=== PATIENT | female | born 1960 | race Two or more races ===

== ENCOUNTER 2017-02-15 14:31 | Emergency (ER) | payer MEDICAID, OTHER ==
[~2017-02-15] VITALS: Ht 162.6 cm; Wt 78.9 kg
[~2017-02-15 14:31] MED LIST: BENAZEPRIL HCL20 MG ORAL; GABAPENTIN300 MG ORAL; IBUPROFEN600 MG ORAL; ROBAXIN-750750 MG PO; TRAMADOL HCL50 MG ORAL
[2017-02-15 15:02] VITALS: BP 134/87
--- NOTE | 2017-02-15 15:04 | Emergency Room Report ---
History of Present Illness General Chief Complaint: Lower Back Pain or Injury Source: Patient Present Illness HPI 56 y/o female c/o sciatica flair up x 1 day. States she was working out at the gym yesterday and pulled her back. States pain radiates to right posterior knee. States this is a chronic reoccurring problem for her and usually takes tramadol during flair ups. Pain worse with movement and better with rest. Denies any lower extremity weakness, incontinence, foot drop, saddle anesthesia , numbness, or paralysis. Allergies: Coded Allergies: ACETAMINOPHEN (Verified Allergy, Mild, RASH, 11/16/13) CODEINE (Verified Allergy, Mild, RASH, 11/16/13) Patient History Past Medical History: see triage record Past Surgical History: none Pertinent Family History: none Immunizations: UTD Reviewed Nursing Documentation: PMH: Agreed, PSxH: Agreed Nursing Documentation-PMH Past Medical History: No History, Except For Hx Hypertension: Yes Hx Neurological Problems: Yes - Sciatica Review of Systems All Other Systems: negative except mentioned in HPI Physical Exam Vital Signs Date Time Temp Pulse Resp B/P Pulse Ox O2 Delivery O2 Flow Rate FiO2 02/15/17 14:41 99.1 94 16 134/87 99 Room Air Sp02 EP Interpretation: reviewed, normal General Appearance: no apparent distress, alert, GCS 15, non-toxic Head: normocephalic, atraumatic Eyes: bilateral eye PERRL, bilateral eye normal inspection ENT: normal ENT inspection Neck: normal inspection, no bony tend Respiratory: chest non-tender, lungs clear, normal breath sounds, speaking full sentences Cardiovascular #1: regular rate, rhythm, no edema Musculoskeletal: back normal, gait/station normal, normal range of motion, non- tender Neurologic: alert, oriented x3, responsive, motor strength/tone normal, sensory intact, speech normal Psychiatric: judgement/insight normal, memory normal, mood/affect normal, no suicidal/homicidal ideation Reflexes: 2+ knee (R), 2+ knee (L) Skin: normal color, no rash, warm/dry, well hydrated Medical Decision Making PA Attestation Dr. Patrick is my supervising physician with whom patient management has been discussed with. Diagnostic Impression: Primary Impression: Lumbago with sciatica, right side Additional Impression: acute exacerbation of chronic pain ER Course Pt. presents to the ED c/o back pain Ddx considered but are not limited to sciatica, piriformis muscle Vital signs: are WNL, pt. is afebrile H&PE are most consistent with [] ORDERS: none required at this time, the diagnosis is clinical ED INTERVENTIONS: none required at this time. DISCHARGE: At this time pt. is stable for d/c to home. Will provide printed patient care instructions, and any necessary prescriptions. Care plan and follow up instructions have been discussed with the patient prior to discharge. Last Vital Signs Date Time Temp Pulse Resp B/P Pulse Ox O2 Delivery O2 Flow Rate FiO2 02/15/17 15:22 78 16 130/80 98 Room Air 02/15/17 15:02 99.1 Status: unchanged Disposition: HOME, SELF-CARE Condition: Stable Scripts Tramadol Hcl* (ULTRAM*) 50 Mg Tablet 50 MG ORAL Q6H Y for For Pain, #30 TAB 0 Refills Prov: SABDINO LEIGHM P.A. 02/15/17 Ibuprofen* (MOTRIN*) 600 Mg Tablet 600 MG ORAL Q8H Y for For Pain, #30 TAB Prov: DINO CORTESM P.A. 02/15/17 Methocarbamol* (ROBAXIN-750*) 750 Mg Tablet 750 MG PO TID, #21 TAB 0 Refills Prov: DINO CORTESM P.A. 02/15/17 Patient Instructions: Low Back Sprain With Rehab-Sports[facility], Sciatica Additional Instructions: Advised patient to take medication as needed. Advised patient that muscle relaxers causes drowsiness and to not take it if they plan on leaving the house or operating heavy machinery. Patient education on Garfield method back exercises for radiculopathy and given hand out with stretches detailed. Advised patient to sleep with pillow behind leg if laying supine or between the knees if laying on their side. Advised patient to wear proper footwear with good insoles in addition to good ergonomics while at home and at work. Patient encouraged for weight loss through diet and exercise to help prevent recurrence of future back pain. Advised patient to go to the ER immediately if she experiences any new LE numbness, weakness, irretractible back pain, or if any paralysis, urinary, or bowel incontinence begins. ANALILIA CORTES Feb 15, 2017 15:04
[2017-02-15] MEDS ORDERED: ROBAXIN-750750 MG PO (15:07)
[2017-02-15] MEDS ORDERED: IBUPROFEN600 MG ORAL (15:07)
[2017-02-15] MEDS ORDERED: TRAMADOL HCL50 MG ORAL (15:07)
[2017-02-15 15:22] VITALS: BP 130/80
== END 2017-02-15 15:20 | disposition home or self-care (01) ==
LOC: EMR 14:50
DX: M54.41 Lumbago with sciatica, right side (principal); G89.29 Other chronic pain; Z88.6 Allergy status to analgesic agent; I10 Essential (primary) hypertension
CPT/HCPCS: 99284

== ENCOUNTER 2017-03-29 14:10 | Emergency (ER) | payer MEDICAID ==
[~2017-03-29] VITALS: Ht 162.6 cm; Wt 78.9 kg
[2017-03-29 14:30] VITALS: BP 128/77
[2017-03-29] MEDS ORDERED: Ketorolac 30mg Inj IM ONE (15:15)
[2017-03-29] MEDS ORDERED: traMADol 50mg tab ORAL ONE (15:15)
[2017-03-29] MEDS ORDERED: TRAMADOL HCL50 MG ORAL (15:19)
[2017-03-29 15:30] VITALS: BP 128/77
--- NOTE | 2017-03-29 19:07 | Emergency Room Report ---
History of Present Illness General Chief Complaint: Lower Back Pain or Injury Source: Medical Record Present Illness HPI The patient is a 56-year-old female with a history of sciatica presenting for right lower back pain. The patient states that she has a herniated disc of the lumbar spine. She states this usually takes tramadol and gabapentin for the pain. She has not had to take his medications recently but is now experiencing exacerbation. Is now described as a 9/10 sharp sensation to the right lower back which radiates down the right leg. Worse with movement. She denies any other symptoms including N, V, F, chills, abd pain, rash, calf pain Allergies: Coded Allergies: ACETAMINOPHEN (Verified Allergy, Mild, RASH, 11/16/13) CODEINE (Verified Allergy, Mild, RASH, 11/16/13) Patient History Past Medical History: see triage record Pertinent Family History: none Reviewed Nursing Documentation: PMH: Agreed, PSxH: Agreed Nursing Documentation-PMH Past Medical History: No History, Except For Hx Hypertension: Yes Hx Neurological Problems: Yes - Sciatica, Herniated L4-L5 Review of Systems All Other Systems: negative except mentioned in HPI Physical Exam Vital Signs Date Time Temp Pulse Resp B/P Pulse Ox O2 Delivery O2 Flow Rate FiO2 03/29/17 14:17 99.0 85 14 128/77 97 Room Air Sp02 EP Interpretation: reviewed, normal General Appearance: no apparent distress, alert, GCS 15, non-toxic Head: normocephalic, atraumatic Eyes: bilateral eye PERRL, bilateral eye normal inspection Musculoskeletal: normal inspection, normal range of motion, tender - TTP over the R paraspinal muscles and buttock Neurologic: alert, oriented x3, responsive, motor strength/tone normal, sensory intact, speech normal Psychiatric: judgement/insight normal, memory normal, mood/affect normal, no suicidal/homicidal ideation Skin: normal color, no rash, warm/dry, well hydrated Lymphatic: no adenopathy Medical Decision Making PA Attestation Dr. Patrick is my supervising physician. Patient management was discussed with my supervising physician Diagnostic Impression: Primary Impression: Sciatic leg pain ER Course The patient is a 56-year-old female with a history of sciatica presenting for right lower back pain Ddx considered include but not limited to lumbar strain, degenerative disease, sciatica, chronic pain, among others PE: vitals WNL. NAD There is tenderness to palpation along the right lumbar paraspinal muscles in the right buttock. No obvious deformity. Sensation is intact Normal gait no Step-offs The patient will be discharged home with a prescription for tramadol. She needs to followup with primary doctor. ER precautions are given Last Vital Signs Date Time Temp Pulse Resp B/P Pulse Ox O2 Delivery O2 Flow Rate FiO2 03/29/17 15:32 99.0 03/29/17 15:30 85 14 128/77 97 Room Air Status: improved Disposition: HOME, SELF-CARE Condition: Improved Scripts Tramadol Hcl* (ULTRAM*) 50 Mg Tablet 50 MG ORAL Q6H Y for For Pain, #10 TAB 0 Refills Prov: WILLIAM OLIVAREZ 03/29/17 Patient Instructions: Sciatica Additional Instructions: I discussed my findings with the patient. All questions and concerns have been answered. Treatment and medication compliance have been addressed. I advised the patient that they need to follow up with PMD in 3-5 days. Return to ED if symptoms worsen, new symptoms arise, or if needed for any reason. Patient verbalized understanding of discharge instructions. WILLIAM OLIVAREZ Mar 29, 2017 19:07
== END 2017-03-29 15:32 | disposition home or self-care (01) ==
LOC: EMR 14:25
DX: M54.31 Sciatica, right side (principal); I10 Essential (primary) hypertension; M51.26 Other intervertebral disc displacement, lumbar region; Z88.6 Allergy status to analgesic agent
CPT/HCPCS: 96372; 99283; J1885

== ENCOUNTER 2017-04-13 12:34 | Emergency (ER) | payer MEDICAID ==
[~2017-04-13] VITALS: Ht 162.6 cm; Wt 79.4 kg
[2017-04-13 12:48] VITALS: BP 152/92
--- NOTE | 2017-04-13 14:24 | Emergency Room Report ---
History of Present Illness General Chief Complaint: Back Pain-No Injury Source: Patient Present Illness HPI The patient is a 56 yo F presenting for chronic back pain. She states that she ran out of tramadol yesterday and will be seeing her PMD in one week for refill. Pain is a 9/10 dull ache to the R lower back and radiates down R leg. She denies any injury. No numbness/tingling. She denies any other symptoms. Allergies: Coded Allergies: ACETAMINOPHEN (Verified Allergy, Mild, RASH, 11/16/13) CODEINE (Verified Allergy, Mild, RASH, 11/16/13) Patient History Past Medical History: see triage record Pertinent Family History: none Last Menstrual Period: hystrectomy Reviewed Nursing Documentation: PMH: Agreed, PSxH: Agreed Nursing Documentation-PMH Past Medical History: No History, Except For Hx Hypertension: Yes Hx Neurological Problems: Yes - Sciatica, Herniated L4-L5 Review of Systems All Other Systems: negative except mentioned in HPI Physical Exam Vital Signs Date Time Temp Pulse Resp B/P Pulse Ox O2 Delivery O2 Flow Rate FiO2 04/13/17 12:48 98.8 14 152/92 99 04/13/17 12:48 90 Sp02 EP Interpretation: reviewed, normal General Appearance: no apparent distress, alert, GCS 15, non-toxic Head: normocephalic, atraumatic Eyes: bilateral eye PERRL, bilateral eye normal inspection ENT: hearing grossly normal, normal pharynx, no angioedema, normal voice Musculoskeletal: normal inspection, back normal, gait/station normal, normal range of motion, tender - R lumbar paraspinal muscles Neurologic: alert, oriented x3, responsive, motor strength/tone normal, sensory intact, speech normal Psychiatric: judgement/insight normal, memory normal, mood/affect normal, no suicidal/homicidal ideation Skin: normal color, no rash, warm/dry, well hydrated Medical Decision Making PA Attestation Dr. Lopez is my supervising physician. Patient management was discussed with my supervising physician Diagnostic Impression: Primary Impression: Chronic back pain Qualified Codes: M54.41 - Lumbago with sciatica, right side; G89.29 - Other chronic pain Additional Impression: Opiate dependence Qualified Codes: F11.29 - Opioid dependence with unspecified opioid-induced disorder ER Course The patient is a 56 yo F presenting for chronic back pain Ddx considered include but not limited to lumbar strain, degenerative disease, chronic pain, narcotic dependency. PE: NAD TTP over R lumbar paraspinal muscles. Otherwise unremarkable CURES report shows multiple prescriptions for tramadol by many different prescribers in recent past. I informed the patient that I will be able to provide this medication due to to multiple recent prescriptions. She understands. Safe pain medication prescribing form given. Last Vital Signs Date Time Temp Pulse Resp B/P Pulse Ox O2 Delivery O2 Flow Rate FiO2 04/13/17 12:48 98.8 90 14 152/92 99 Status: improved Disposition: HOME, SELF-CARE Condition: Stable Patient Instructions: Back Pain, Adult Additional Instructions: I discussed my findings with the patient. All questions and concerns have been answered. Treatment and medication compliance have been addressed. I advised the patient that they need to follow up with PMD in 3-5 days. Return to ED if symptoms worsen, new symptoms arise, or if needed for any reason. Patient verbalized understanding of discharge instructions. I provided the patient with a CURES report. We are unable to prescribe opioid pain medication. Safe pain medication prescribing sheet provided. WILLIAM OLIVAREZ Apr 13, 2017 14:24
== END 2017-04-13 14:52 | disposition home or self-care (01) ==
LOC: EMR 14:40
DX: M54.41 Lumbago with sciatica, right side (principal); G89.29 Other chronic pain; F11.29 Opioid dependence with unspecified opioid-induced disorder; I10 Essential (primary) hypertension; Z88.6 Allergy status to analgesic agent; Z90.710 Acquired absence of both cervix and uterus; M51.26 Other intervertebral disc displacement, lumbar region
CPT/HCPCS: 99282

== ENCOUNTER 2017-07-08 14:05 | Emergency (ER) | payer MEDICAID, OTHER ==
[~2017-07-08] VITALS: Ht 162.6 cm; Wt 86.2 kg
[2017-07-08] MEDS ORDERED: SOMA350 MG PO (14:13)
--- NOTE | 2017-07-08 14:37 | Emergency Room Report ---
History of Present Illness General Chief Complaint: Pain Source: Patient Present Illness HPI 56 YO Female presents to the ED c/o 03/23 in severity Right -sided low back pain that shoots down the leg x 2 days, hx of right sided sciatica, has MRI scheduled, and appt. with PCP for pain management referral on the second of next month. last exacerbation was 6 months ago. She denies fevers, chills, night sweats, significant changes in weight, hx of cancer, recent trauma or fall. Denies abdominal pain, dysuria, hematuria, frequency, headache, neck pain or stiffness. Denies numbness tingling or loss of sensation or gross motor movements of the extremities, incontinence of bowel or bladder. Denies CP, Palpitations, LOC, AMS, dizziness, Changes in Vision, Sensation, paresthesias, or a sudden severe headache. Allergies: Coded Allergies: ACETAMINOPHEN (Verified Allergy, Mild, RASH, 11/16/13) CODEINE (Verified Allergy, Mild, RASH, 11/16/13) Patient History Past Medical History: see triage record Past Surgical History: none Pertinent Family History: none Last Menstrual Period: Post Now: No Reviewed Nursing Documentation: PMH: Agreed, PSxH: Agreed Nursing Documentation-PMH Hx Hypertension: Yes Hx Neurological Problems: Yes - Sciatica, Herniated L4-L5 Review of Systems All Other Systems: negative except mentioned in HPI Physical Exam Vital Signs Date Time Temp Pulse Resp B/P (MAP) Pulse Ox O2 Delivery O2 Flow Rate FiO2 07/08/17 14:08 99.3 102 19 134/75 96 Room Air Sp02 EP Interpretation: reviewed, normal General Appearance: no apparent distress, alert, GCS 15, non-toxic Head: normocephalic, atraumatic Eyes: bilateral eye normal inspection, bilateral eye PERRL ENT: hearing grossly normal, normal voice Neck: full range of motion, supple/symm/no masses Respiratory: chest non-tender, lungs clear, normal breath sounds, no wheezing, speaking full sentences Cardiovascular #1: regular rate, rhythm, no edema, normal capillary refill, tachycardia - 102 BPM Cardiovascular #2: 2+ carotid (R), 2+ carotid (L), 2+ radial (R), 2+ radial (L) , 2+ dorsalis pedis (R), 2+ dorsalis pedis (L) Gastrointestinal: non tender, soft, no guarding, no rebound Rectal: deferred Genitourinary: normal inspection, no CVA tenderness Musculoskeletal: back normal, gait/station normal, normal range of motion - with intermittent exacerbation of pain, tender - right upper glute ttp, no spinal ttp, no obvious deformity. pt does not tolerate lying flat for straight leg raise exam. Neurologic: alert, oriented x3, responsive, motor strength/tone normal, sensory intact, speech normal Psychiatric: judgement/insight normal, memory normal, mood/affect normal Skin: normal color, no rash, warm/dry, well hydrated Medical Decision Making PA Attestation Dr. Pretty is my supervising Physician whom patient management has been discussed with. Diagnostic Impression: Primary Impression: Sciatic leg pain ER Course 56 YO Female presents to the ED c/o 03/23 in severity Right -sided low back pain that shoots down the leg x 2 days, hx of right sided sciatica, has MRI scheduled, and appt. with PCP for pain management referral on the second of next month. last exacerbation was 6 months ago. She denies fevers, chills, night sweats, significant changes in weight, hx of cancer, recent trauma or fall. Denies abdominal pain, dysuria, hematuria, frequency, headache, neck pain or stiffness. Denies numbness tingling or loss of sensation or gross motor movements of the extremities, incontinence of bowel or bladder. Denies CP, Palpitations, LOC, AMS, dizziness, Changes in Vision, Sensation, paresthesias, or a sudden severe headache. Ddx considered but are not limited to Fracture, dislocation, contusion, epidural abscess, Sprain/Strain/Spasm Vital signs: are WNL, pt. is afebrile H&PE are most consistent with sciatica Pt. unable to tolerate straight leg raise. ORDERS: X-ray not required at this time, no spinous process tenderness ED INTERVENTIONS: IM Toradol 20mg. -Soma PO DISCHARGE: At this time pt. is stable for d/c to home. Will provide printed patient care instructions, and any necessary prescriptions. Care plan and follow up instructions have been discussed with the patient prior to discharge. Last Vital Signs Date Time Temp Pulse Resp B/P (MAP) Pulse Ox O2 Delivery O2 Flow Rate FiO2 07/08/17 14:08 99.3 102 19 134/75 96 Room Air Disposition: HOME, SELF-CARE Condition: Stable Scripts Ibuprofen* (MOTRIN*) 600 Mg Tablet 600 MG ORAL THREE TIMES A DAY, #30 TAB 0 Refills Prov: Talya Hogan 07/08/17 Methocarbamol* (ROBAXIN-750*) 750 Mg Tablet 750 MG PO TID for 7 Days, #21 TAB 0 Refills Prov: Talya Hogan 07/08/17 Patient Instructions: Sciatica Additional Instructions: Take medications as directed. Follow up with a Primary Care Provider in 3-5 days, even if your symptoms have resolved. --Please review list of primary care clinics, if you do not already have a primary care provider Return sooner to ED if new symptoms occur, or current symptoms become worse. Do not drink alcohol, drive, or operate heavy machinery while taking Muscle Relaxer: Robaxin as this may cause drowsiness. - Please note that this Emergency Department Report was dictated using [employer] service lead technology software, occasionally this can lead to erroneous entry secondary to interpretation by the dictation equipment. Talya Hogan Jul 08, 2017 14:37
[2017-07-08] MEDS ORDERED: IBUPROFEN600 MG ORAL (14:42)
[2017-07-08] MEDS ORDERED: ROBAXIN-750750 MG PO (14:42)
[2017-07-08] MEDS ORDERED: Ketorolac 60mg Inj IM ONE (14:45)
[2017-07-08 15:00] VITALS: BP 125/86
== END 2017-07-08 15:00 | disposition home or self-care (01) ==
LOC: EMR 14:40
DX: M54.31 Sciatica, right side (principal); M54.5 Low back pain; M51.26 Other intervertebral disc displacement, lumbar region; Z88.6 Allergy status to analgesic agent; Z88.5 Allergy status to narcotic agent; I10 Essential (primary) hypertension
CPT/HCPCS: 96372; 99284

== ENCOUNTER 2017-08-18 12:04 | Emergency (ER) | payer OTHER ==
[~2017-08-18] VITALS: Ht 162.6 cm; Wt 81.6 kg
[~2017-08-18 12:04] MED LIST changes: +SOMA350 MG PO
[2017-08-18 12:20] VITALS: BP 149/93
[2017-08-18] MEDS ORDERED: traMADol 50mg tab ORAL ONE (12:30)
[2017-08-18 13:00] LABS: KETONES,URINE NEGATIVE (NEGATIVE); LEUKOCYTE ESTERASE ,URINE NEGATIVE (NEGATIVE); NITRITE,URINE NEGATIVE (NEGATIVE); PH,URINE 7 (4.5-8.0); PROTEIN,URINE NEGATIVE (NEGATIVE); UROBILINOGEN,URINE NORMAL MG/DL (0.0-1.0)
[2017-08-18 13:01] LABS: APPEARANCE,URINE CLEAR; SQUAMOUS EPITHELIAL CELL,UR OCCASIONAL /LPF (NONE/OCC); WBC,URINE 0-2 /HPF (0 - 2)
[2017-08-18 13:10] VITALS: BP 149/93
[2017-08-18] MEDS ORDERED: TRAMADOL HCL50 MG ORAL (13:13)
--- NOTE | 2017-08-18 19:23 | Emergency Room Report ---
History of Present Illness General Chief Complaint: Lower Back Pain or Injury Source: Patient Present Illness [facility] The patient is a 56-year-old female presenting for back pain. She has a history of chronic back pain with sciatica and states that she is being treated with chronic pain management. She takes tramadol 50 mg and has run out today. She states that she needs a refill for 3 days. Pain is a 10 out of 10 dull ache from the right lower back down the back of her right leg. She states that this is typical for her sciatica. Pain is worse with movement. She denies any other symptoms including nausea, vomiting, fever, chills, incontinence, abdominal pain Allergies: Coded Allergies: ACETAMINOPHEN (Verified Allergy, Mild, RASH, 11/16/13) CODEINE (Verified Allergy, Mild, RASH, 11/16/13) Patient History Past Medical History: see triage record Pertinent Family History: none Last Menstrual Period: na Reviewed Nursing Documentation: PMH: Agreed, PSxH: Agreed Nursing Documentation-PMH Past Medical History: No History, Except For Hx Hypertension: Yes Hx Neurological Problems: Yes - Sciatica, Herniated L4-L5 Review of Systems All Other Systems: negative except mentioned in HPI Physical Exam Vital Signs Date Time Temp Pulse Resp B/P (MAP) Pulse Ox O2 Delivery O2 Flow Rate FiO2 08/18/17 12:16 98.1 87 18 149/93 98 Room Air Sp02 EP Interpretation: reviewed, normal General Appearance: no apparent distress, alert, GCS 15, non-toxic Head: normocephalic, atraumatic Eyes: bilateral eye normal inspection, bilateral eye PERRL ENT: hearing grossly normal, normal pharynx, no angioedema, normal voice Gastrointestinal: normal bowel sounds, non tender, soft, non-distended, no guarding, no rebound Rectal: deferred Genitourinary: normal inspection, no CVA tenderness Musculoskeletal: back normal, normal range of motion, other - antalgic gait, tender - R lumbar paraspinal muscles Neurologic: alert, oriented x3, responsive, motor strength/tone normal, sensory intact, speech normal Psychiatric: judgement/insight normal, memory normal, mood/affect normal, no suicidal/homicidal ideation Skin: normal color, no rash, warm/dry, well hydrated Medical Decision Making PA Attestation Dr. Chambers is my supervising physician. Patient management was discussed with my supervising physician Diagnostic Impression: Primary Impression: Sciatic leg pain ER Course The patient is a 56-year-old female presenting for back pain Ddx considered include but not limited to lumbar strain, degenerative disease, epidural abscess, cauda equina syndrome, chronic pain, narcotic dependency. PE: afebrile. NAD Abdomen soft and nontender. No CVA tenderness There is tenderness to palpation over the right lumbar paraspinal muscles. No midline tenderness. The patient walks with antalgic gait with a cane. The patient is given 1 tramadol with Motrin here and will be discharged home with a limited prescription for tramadol. Cures report shows no recent prescription Laboratory Tests Test 08/18/17 12:30 Urine Color Pale yellow Urine Appearance Clear Urine pH 7 (4.5-8.0) Urine Specific [place] 1.010 (1.005-1.035) Urine Protein Negative (NEGATIVE) Urine Glucose (UA) Negative (NEGATIVE) Urine Ketones Negative (NEGATIVE) Urine Occult Blood 1+ (NEGATIVE) H Urine Nitrite Negative (NEGATIVE) Urine Bilirubin Negative (NEGATIVE) Urine Urobilinogen Normal MG/DL (0.0-1.0) Urine Leukocyte Esterase Negative (NEGATIVE) Urine RBC 2-4 /HPF (0 - 2) H Urine WBC 0-2 /HPF (0 - 2) Urine Squamous Epithelial Cells Occasional /LPF Urine Bacteria None /HPF (NONE) Lab Results Impression unremarkable Last Vital Signs Date Time Temp Pulse Resp B/P (MAP) Pulse Ox O2 Delivery O2 Flow Rate FiO2 08/18/17 13:17 98.0 08/18/17 13:10 84 18 149/93 98 Room Air Status: improved Disposition: HOME, SELF-CARE Condition: Improved Scripts Tramadol Hcl* (ULTRAM*) 50 Mg Tablet 50 MG ORAL Q6H Y for For Pain, #10 TAB 0 Refills Prov: WILLIAM OLIVAREZ 08/18/17 Referrals: [employer] [facility],REFERRIN (PCP) Patient Instructions: Back Pain, Adult Additional Instructions: I discussed my findings with the patient. All questions and concerns have been answered. Treatment and medication compliance have been addressed. I advised the patient that they need to follow up with PMD in 3-5 days. Return to ED if symptoms worsen, new symptoms arise, or if needed for any reason. Patient verbalized understanding of discharge instructions. The patient will need to followup with pain management for further treatment WLILIAM OLIVAREZ Aug 18, 2017 19:23
== END 2017-08-18 13:20 | disposition home or self-care (01) ==
LOC: EMR 13:10
DX: M54.40 Lumbago with sciatica, unspecified side (principal); I10 Essential (primary) hypertension; Z88.6 Allergy status to analgesic agent
CPT/HCPCS: 81003; 99283

== ENCOUNTER 2017-09-11 11:35 | Emergency (ER) | payer OTHER ==
[~2017-09-11] VITALS: Ht 162.6 cm; Wt 81.6 kg
[2017-09-11 11:47] VITALS: BP 142/91
--- NOTE | 2017-09-11 12:30 | Emergency Room Report ---
History of Present Illness General Chief Complaint: Medication Refill Present Illness HPI 56-year-old female presents to the emergency department complaining of 8/10 in severity right-sided low back pain with radiation into the posterior right thigh x2 days. Patient reports history of sciatica for which she intermittently needs to take tramadol for. Patient states that she is not regularly prescribed, not because she does not need it on a regular basis only. Acute flare-ups. Patient reports that she was helping to care for her mother and after lifting her had exacerbation of her symptoms. She denies trauma or fall. Denies fevers, chills, recent spinal procedures, night sweats or history of cancer. Denies frequency, urgency, dysuria or hematuria denies abdominal pain . Denies numbness tingling or loss of sensation or gross motor movements of the extremities, incontinence of bowel or bladder. Denies CP, Palpitations, LOC, AMS, dizziness, Changes in Vision, Sensation, paresthesias, or a sudden severe headache. Allergies: Coded Allergies: ACETAMINOPHEN (Verified Allergy, Mild, RASH, 11/16/13) CODEINE (Verified Allergy, Mild, RASH, 11/16/13) Patient History Past Medical History: see triage record Past Surgical History: none Pertinent Family History: none Reviewed Nursing Documentation: PMH: Agreed, PSxH: Agreed Nursing Documentation-PMH Hx Hypertension: Yes Hx Neurological Problems: Yes - Sciatica, Herniated L4-L5 Review of Systems All Other Systems: negative except mentioned in HPI Physical Exam Vital Signs Date Time Temp Pulse Resp B/P (MAP) Pulse Ox O2 Delivery O2 Flow Rate FiO2 09/11/17 11:37 98.1 99 20 142/91 99 Room Air Sp02 EP Interpretation: reviewed, normal General Appearance: no apparent distress, alert, GCS 15, non-toxic Head: normocephalic, atraumatic Eyes: bilateral eye normal inspection, bilateral eye PERRL ENT: hearing grossly normal, normal voice Neck: full range of motion Respiratory: lungs clear, normal breath sounds, speaking full sentences Cardiovascular #1: regular rate, rhythm Gastrointestinal: non tender, soft Genitourinary: no CVA tenderness Musculoskeletal: back normal, gait/station normal, normal range of motion, tender - right lumbar paraspinal ttp, no midline ttp, pt. is ambulatory FROM observed. Neurologic: alert, oriented x3, responsive, motor strength/tone normal, sensory intact, normal gait, speech normal, grossly normal Skin: normal color, no rash, warm/dry, well hydrated Medical Decision Making PA Attestation Dr. Chambers is my supervising Physician whom patient management has been discussed with. Diagnostic Impression: Primary Impression: Encounter for medication refill Additional Impression: Chronic back pain Qualified Codes: M54.41 - Lumbago with sciatica, right side; G89.29 - Other chronic pain ER Course 56-year-old female presents to the emergency department complaining of 8/10 in severity right-sided low back pain with radiation into the posterior right thigh x2 days. Patient reports history of sciatica for which she intermittently needs to take tramadol for. Patient states that she is not regularly prescribed, not because she does not need it on a regular basis only. Acute flare-ups. Patient reports that she was helping to care for her mother and after lifting her had exacerbation of her symptoms. She denies trauma or fall. Denies fevers, chills, recent spinal procedures, night sweats or history of cancer. Denies frequency, urgency, dysuria or hematuria denies abdominal pain . Denies numbness tingling or loss of sensation or gross motor movements of the extremities, incontinence of bowel or bladder. Denies CP, Palpitations, LOC, AMS, dizziness, Changes in Vision, Sensation, paresthesias, or a sudden severe headache. Ddx considered but are not limited to: drug seeking, OD, sciatica exacerbation Vital signs: are WNL, pt. is afebrile H&PE are most consistent with need for medication refill. ORDERS: none required at this time, the diagnosis is clinical ED INTERVENTIONS: None required at this time. -Discussed with patient that I will prescribe her Lidoderm patches for conservative treatment and very small quantity of medication however it is not standard to refill controlled substances or pain medications at the emergency department and further medication management needs to be done by her primary care physician. DISCHARGE: At this time pt. is stable for d/c to home. Will provide printed patient care instructions, and any necessary prescriptions. Care plan and follow up instructions have been discussed with the patient prior to discharge. Last Vital Signs Date Time Temp Pulse Resp B/P (MAP) Pulse Ox O2 Delivery O2 Flow Rate FiO2 09/11/17 11:37 98.1 99 20 142/91 99 Room Air Disposition: HOME, SELF-CARE Condition: Stable Scripts Lidocaine (Lidoderm) 1 Each Adh..patch 1 PATCH TOPIC DAILY, #25 PATCH 0 Refills Patch(es) may remain in place for up to 12 hours in any 24-hour period. Prov: Talya Hogan 09/11/17 Tramadol Hcl* (ULTRAM*) 50 Mg Tablet 50 MG ORAL Q8HR Y for For Pain, #10 TAB 0 Refills Prov: Talya Hogan 09/11/17 Patient Instructions: Medicine Refill at the Emergency Department Additional Instructions: Take medications as directed. Follow up with a Primary Care Provider in 3-5 days, even if your symptoms have resolved. --Please review list of primary care clinics, if you do not already have a primary care provider Return sooner to ED if new symptoms occur, or current symptoms become worse. Do not drink alcohol, drive, or operate heavy machinery while taking Tramadol as this may cause drowsiness. - Please note that this Emergency Department Report was dictated using [employer] machine operator technology software, occasionally this can lead to erroneous entry secondary to interpretation by the dictation equipment. Talya Hogan Sep 11, 2017 12:30
[2017-09-11] MEDS ORDERED: LIDODERM700 M1 TOPIC (12:32)
[2017-09-11] MEDS ORDERED: TRAMADOL HCL50 MG ORAL (12:32)
[2017-09-11 12:50] VITALS: BP 142/91
[2017-11-03] MEDS ORDERED: TRAMADOL HCL50 MG ORAL (12:47)
[2017-11-03] MEDS ORDERED: GABAPENTIN300 MG ORAL (12:47)
== END 2017-09-11 12:50 | disposition home or self-care (01) ==
LOC: EMR 12:40
DX: Z76.0 Encounter for issue of repeat prescription (principal); Z88.6 Allergy status to analgesic agent; Z88.0 Allergy status to penicillin; G89.29 Other chronic pain; M54.5 Low back pain; I10 Essential (primary) hypertension; M54.30 Sciatica, unspecified side
CPT/HCPCS: 99284

== ENCOUNTER 2017-10-02 15:58 | Emergency (ER) | payer OTHER ==
[~2017-10-02] VITALS: Ht 162.6 cm; Wt 82.1 kg
[~2017-10-02 15:58] MED LIST changes: +LIDODERM700 M1 TOPIC
[2017-10-02 16:11] VITALS: BP 135/106
[2017-10-02] MEDS ORDERED: TRAMADOL HCL50 MG ORAL (17:10)
[2017-10-02 17:15] VITALS: BP 135/106
[2017-10-02] MEDS ORDERED: traMADol 50mg tab ORAL ONE (17:15)
--- NOTE | 2017-10-02 17:55 | Emergency Room Report ---
History of Present Illness General Chief Complaint: Back Pain-No Injury Source: Patient Present Illness HPI The patient is a 57-year-old female with a history of chronic back pain and sciatica presenting for back pain. She states that pain is a 9/10 dull ache and radiates down the right leg. she states that this feels typical for her sciatica. She takes tramadol for her pain but states that she ran out today. She is to see her doctor within the next few days. She denies any recent injury or other symptoms including numbness, tingling, incontinence, abdominal pain, fever, chills Allergies: Coded Allergies: CODEINE (Verified Allergy, Mild, RASH, 11/16/13) Patient History Past Medical History: see triage record Pertinent Family History: none Reviewed Nursing Documentation: PMH: Agreed, PSxH: Agreed Nursing Documentation-PMH Past Medical History: No History, Except For Hx Hypertension: Yes Hx Neurological Problems: Yes - Sciatica, Herniated L4-L5 Review of Systems All Other Systems: negative except mentioned in HPI Physical Exam Vital Signs Date Time Temp Pulse Resp B/P (MAP) Pulse Ox O2 Delivery O2 Flow Rate FiO2 10/02/17 16:11 99.3 90 18 135/106 99 Room Air Sp02 EP Interpretation: reviewed, normal General Appearance: no apparent distress, alert, GCS 15, non-toxic Head: normocephalic, atraumatic Eyes: bilateral eye normal inspection, bilateral eye PERRL ENT: hearing grossly normal, normal pharynx, no angioedema, normal voice Respiratory: chest non-tender, lungs clear, normal breath sounds, speaking full sentences Cardiovascular #1: regular rate, rhythm, no edema Musculoskeletal: back normal, gait/station normal, normal range of motion, tender - R lumbar paraspinal muscles Neurologic: alert, oriented x3, responsive, motor strength/tone normal, sensory intact, speech normal Psychiatric: judgement/insight normal, memory normal, mood/affect normal, no suicidal/homicidal ideation Skin: normal color, no rash, warm/dry, well hydrated Medical Decision Making PA Attestation Dr. Duckworth is my supervising physician. Patient management was discussed with my supervising physician Diagnostic Impression: Primary Impression: Chronic back pain Qualified Codes: M54.5 - Low back pain; G89.29 - Other chronic pain ER Course The patient is a 57-year-old female with a history of chronic back pain and sciatica presenting for back pain. Ddx considered include but not limited to lumbar strain, degenerative disease, epidural abscess, cauda equina, chronic pain, narcotic dependency. Physical exam: Afebrile. No apparent distress Is tenderness to palpation over the right lumbar paraspinal muscles. Full active range of motion is intact. Normal gait Cures report shows last prescription was due to run out today. The patient is given one dose of pain medication in the emergency Department in a very limited prescription. She needs to have pain management prescribe these medications for chronic treatment. ER precautions are given Last Vital Signs Date Time Temp Pulse Resp B/P (MAP) Pulse Ox O2 Delivery O2 Flow Rate FiO2 10/02/17 17:15 99.3 84 18 135/106 99 Room Air Status: improved Disposition: HOME, SELF-CARE Condition: Improved Scripts Tramadol Hcl* (ULTRAM*) 50 Mg Tablet 50 MG ORAL Q6H Y for For Pain, #5 TAB 0 Refills Prov: WILLIAM OLIVAREZ 10/02/17 Referrals: [facility],REFERR[facility] (PCP) Patient Instructions: Back Pain, Adult Additional Instructions: I discussed my findings with the patient. All questions and concerns have been answered. Treatment and medication compliance have been addressed. Return to ED if symptoms worsen, new symptoms arise, or if needed for any reason. Patient verbalized understanding of discharge instructions. The patient was told that she needs to followup with pain management for further therapy. Emergency department is an improper place for chronic pain management WILLIAM OLIVAREZ Oct 02, 2017 17:55
[2017-11-03] MEDS ORDERED: TRAMADOL HCL50 MG ORAL (12:47)
[2017-11-03] MEDS ORDERED: GABAPENTIN300 MG ORAL (12:47)
== END 2017-10-02 17:15 | disposition home or self-care (01) ==
LOC: EMR 17:00
DX: G89.29 Other chronic pain (principal); M51.16 Intervertebral disc disorders with radiculopathy, lumbar region; I10 Essential (primary) hypertension; Z88.6 Allergy status to analgesic agent
CPT/HCPCS: 99283

== ENCOUNTER → 2017-11-03 | Emergency (ER) | payer MEDICAID, OTHER ==
[~2017-11-03] VITALS: Ht 162.6 cm; Wt 83.5 kg
--- NOTE | 2017-11-03 12:47 | Emergency Room Report ---
History of Present Illness General Chief Complaint: Pain Source: Patient Present Illness HPI 57 yo female patient presents to ER complaining of chronic back and sciatica pain. Patient reports currently being seen by pain management for treatment of symptoms. Patient reports current physician Dr. Soares "" and she had to get a new physician; reports appointment with new physician at pain management is next Thursday. Patient requesting pain medication until next appointment. Patient reports taking Tramadol and Gabapentin. Patient was previously seen in ER and provided with pain medication. Patient denies fever, chest pain, SOB, abdominal pain, bowel or bladder incontinence, rash. appointment with new doctor next Thursday. Allergies: Coded Allergies: CODEINE (Verified Allergy, Mild, RASH, 11/16/13) Patient History Past Medical History: see triage record Last Menstrual Period: Post Reviewed Nursing Documentation: PMH: Agreed, PSxH: Agreed Nursing Documentation-PMH Hx Hypertension: Yes Hx Neurological Problems: Yes - Sciatica, Herniated L4-L5 Review of Systems All Other Systems: negative except mentioned in HPI Physical Exam Vital Signs Date Time Temp Pulse Resp B/P (MAP) Pulse Ox O2 Delivery O2 Flow Rate FiO2 11/03/17 12:17 99.4 107 16 142/87 96 Room Air 99.3 Sp02 EP Interpretation: reviewed, normal General Appearance: well appearing, no apparent distress, alert, GCS 15, non- toxic Head: normocephalic, atraumatic Eyes: bilateral eye normal inspection, bilateral eye PERRL ENT: hearing grossly normal, normal pharynx, normal voice, uvula midline, moist mucus membranes Neck: full range of motion Respiratory: normal inspection, lungs clear, normal breath sounds, no rhonchi, no accessory muscle use, no wheezing, speaking full sentences Cardiovascular #1: regular rate, rhythm Gastrointestinal: normal bowel sounds, non tender, soft, no mass, no organomegaly, non-distended, no guarding, no rebound Musculoskeletal: back normal, digits/nails normal, gait/station normal, normal range of motion, non-tender, other - pain with right leg extension, positive flip test Neurologic: alert, oriented x3, responsive, motor strength/tone normal, normal gait Psychiatric: mood/affect normal Skin: no rash Medical Decision Making PA Attestation Dr. Pretty is my supervising Physician whom patient management has been discussed with. Diagnostic Impression: Primary Impression: Chronic back pain Additional Impression: Sciatic leg pain ER Course Pt. presents to the ED c/o back pain. Ddx considered but are not limited to sprain, strain, contusion, sciatica. Vital signs: pt. is afebrile; informed patient of elevated pulse; states she is normally elevated; reports hx of HTN. Checked CURES report; patient received month supply of Tramadol on 10/12/2017. Discussed with patient. Informed patient that ER will not continue to provide her with pain medication. Informed patient to take medication as prescribed; do not increase dosage without permission from pain management physician. Pain medication received from pain management should last entire month. Patient reports understanding and agreement to treatment plan. DISCHARGE: -Rx provided for Tramadol for pain symptoms. -Rx provided for Gabapentin for sciatica. Provided patient with one week supply of medication. Patient will need to followup with pain management. At this time pt. is stable for d/c to home. Patient is resting comfortably, in no acute distress, nontoxic appearing. Will provide printed patient care instructions, and any necessary prescriptions. Patient instructed to follow with primary care provider in 3 - 5 days to discuss treatment plan and further referral as needed Patient instructed to follow up with pain management for further pain medication and treatment. Care plan and follow up instructions have been discussed with the patient prior to discharge. Take medications as directed. Patient questions asked and answered. ER precautions given, patient instructed to return to ER immediately for any new or worsening of symptoms. Last Vital Signs Date Time Temp Pulse Resp B/P (MAP) Pulse Ox O2 Delivery O2 Flow Rate FiO2 11/03/17 12:17 99.4 107 16 142/87 96 Room Air 99.3 Disposition: HOME, SELF-CARE Condition: Stable Scripts Gabapentin* (GABAPENTIN*) 300 Mg Capsule 300 MG ORAL BEDTIME for 7 Days, #7 CAP Prov: Haresh Brown P.A. 11/03/17 Tramadol Hcl* (ULTRAM*) 50 Mg Tablet 50 MG ORAL DAILY Y for For Pain, #7 TAB 0 Refills Prov: Haresh Brown P.A. 11/03/17 Patient Instructions: Sciatica, [id number] Additional Instructions: Followup with primary care provider in 3 -5 days. Followup with pain management for further treatment and prescriptions. Take medications as directed. Patient questions asked and answered. ER precautions given, patient instructed to return to ER immediately for any new or worsening of symptoms. Haresh Brown Nov 03, 2017 12:47
[2017-11-03 12:52] VITALS: BP 142/87
== END | disposition home or self-care (01) ==
LOC: EMR 12:55
DX: M51.16 Intervertebral disc disorders with radiculopathy, lumbar region (principal); G89.29 Other chronic pain; I10 Essential (primary) hypertension; Z88.5 Allergy status to narcotic agent
CPT/HCPCS: 99283

== ENCOUNTER 2018-04-30 11:58 | Emergency (ER) | payer MEDICAID ==
[~2018-04-30] VITALS: Ht 162.6 cm; Wt 83.0 kg
[2018-04-30 12:09] VITALS: BP 137/90
--- NOTE | 2018-04-30 12:24 | Emergency Room Report ---
History of Present Illness General Chief Complaint: Lower Back Pain or Injury Present Illness HPI 57-year-old female presents to the emergency department complaining of 7 out of 10 in severity low back pain with radiation of her symptoms down into the right leg. Patient reports history of sciatica and states that her symptoms are consistent with previous episodes in the past. Patient states that she believes her condition was exacerbated after attempting to lift her mother. Patient reports that her pain was progressive in nature she denies trauma or fall otherwise denies recent spinal procedures, fevers, chills or history of cancer. Denies numbness tingling or loss of sensation or gross motor movements of the extremities, incontinence of bowel or bladder. Denies CP, Palpitations, LOC, AMS, dizziness, Changes in Vision, weakness or a sudden severe headache. Allergies: Coded Allergies: CODEINE (Verified Allergy, Mild, RASH, 11/16/13) Patient History Past Medical History: see triage record Past Surgical History: none Pertinent Family History: none Now: No Reviewed Nursing Documentation: PMH: Agreed; PSxH: Agreed Nursing Documentation-PMH Hx Hypertension: Yes Hx Neurological Problems: Yes - Sciatica, Herniated L4-L5 Review of Systems All Other Systems: negative except mentioned in HPI Physical Exam Vital Signs Date Time Temp Pulse Resp B/P (MAP) Pulse Ox O2 Delivery O2 Flow Rate FiO2 04/30/18 11:59 99.0 93 24 137/90 96 Room Air 99.0 Sp02 EP Interpretation: reviewed, normal General Appearance: alert, GCS 15, non-toxic, mild distress Head: normocephalic, atraumatic ENT: hearing grossly normal, normal voice Neck: full range of motion Respiratory: lungs clear, normal breath sounds, speaking full sentences Cardiovascular #1: regular rate, rhythm Rectal: deferred Genitourinary: normal inspection, no CVA tenderness Musculoskeletal: back normal, gait/station normal, normal range of motion, tender - TTP right lumbar parspinal musculature, no midline spinous process ttp , pt. ambulatory, pain exacerbated with bending forward Neurologic: alert, oriented x3, responsive, motor strength/tone normal, sensory intact, speech normal, grossly normal Psychiatric: judgement/insight normal Skin: normal color, no rash, warm/dry, well hydrated Lymphatic: no adenopathy Medical Decision Making PA Attestation Dr. Berg is my supervising Physician whom patient management has been discussed with. Diagnostic Impression: Primary Impression: acute exacerbation of chronic pain ER Course 57-year-old female presents to the emergency department complaining of 7 out of 10 in severity low back pain with radiation of her symptoms down into the right leg. Patient reports history of sciatica and states that her symptoms are consistent with previous episodes in the past. Patient states that she believes her condition was exacerbated after attempting to lift her mother. Patient reports that her pain was progressive in nature she denies trauma or fall otherwise denies recent spinal procedures, fevers, chills or history of cancer. Denies numbness tingling or loss of sensation or gross motor movements of the extremities, incontinence of bowel or bladder. Denies CP, Palpitations, LOC, AMS, dizziness, Changes in Vision, weakness or a sudden severe headache. Ddx considered but are not limited to Fracture, dislocation, contusion, epidural abscess, Sprain/Strain/Spasm -Review of [facility] web-site : No active or recent rx's in the last 6 months. Vital signs: are WNL, pt. is afebrile H&PE are most consistent with exacerbation of low back pain with sciatica ORDERS: X-ray not required at this time, no spinous process tenderness ED INTERVENTIONS: -Soma PO -Lidoderm patch TP DISCHARGE: At this time pt. is stable for d/c to home. Will provide printed patient care instructions, and any necessary prescriptions. Care plan and follow up instructions have been discussed with the patient prior to discharge. Last Vital Signs Date Time Temp Pulse Resp B/P (MAP) Pulse Ox O2 Delivery O2 Flow Rate FiO2 04/30/18 12:09 99.0 87 24 137/90 96 Room Air 99.0 Disposition: HOME, SELF-CARE Condition: Stable Patient Instructions: Back Pain, Adult, Sciatica, [id number] Additional Instructions: Take medications as directed. Follow up with a Primary Care Provider in 3-5 days, even if your symptoms have resolved. --Please review list of primary care clinics, if you do not already have a primary care provider Return sooner to ED if new symptoms occur, or current symptoms become worse. Do not drink alcohol, drive, or operate heavy machinery while taking Tramadol as this may cause drowsiness. - Please note that this Emergency Department Report was dictated using [employer] machine operator technology software, occasionally this can lead to erroneous entry secondary to interpretation by the dictation equipment. Talya Hogan Apr 30, 2018 12:23
[2018-04-30] MEDS ORDERED: TRAMADOL HCL50 MG ORAL (12:26)
[2018-04-30] MEDS ORDERED: LIDODERM700 M1 TOPIC (12:26)
[2018-04-30] MEDS ORDERED: IBUPROFEN600 MG ORAL (12:26)
[2018-04-30 12:31] VITALS: BP 139/78
== END 2018-04-30 12:45 | disposition home or self-care (01) ==
LOC: EMR 12:35
DX: M54.5 Low back pain (principal); G89.29 Other chronic pain; I10 Essential (primary) hypertension; Z88.6 Allergy status to analgesic agent
CPT/HCPCS: 99282

== ENCOUNTER 2018-10-26 12:34 | Emergency (ER) | payer MEDICAID ==
[~2018-10-26] VITALS: Ht 162.6 cm; Wt 84.4 kg
--- NOTE | 2018-10-26 12:54 | Emergency Room Report ---
History of Present Illness General Chief Complaint: Lower Back Pain or Injury Source: Patient Present Illness HPI 58-year-old female presents to the emergency department complaining of 7 out of 10 in severity right-sided low back pain with radiation down to the posterior right knee 1 day. Patient reports acute onset after helping to take her mother to the bathroom at 4 AM this morning. Patient reports history of L4-L5 disc herniation and regularly receives epidural injections every 8 months. Patient reports that her last injection was 6 months ago she denies fevers, chills or history of neoplastic disease. Patient denies midline spinal pain, trauma or fall. Patient denies incontinence, saddle anesthesia or urinary retention. Patient reports ambulating or sitting straight up and down exacerbates her pain. She reports having difficulty finding position of comfort. Denies dysuria, hematuria, or urinary frequency. Denies abdominal pain or tenderness. Allergies: Coded Allergies: CODEINE (Verified Allergy, Mild, RASH, 11/16/13) Patient History Past Medical History: see triage record Past Surgical History: none Pertinent Family History: none Last Menstrual Period: hysterectomy 2006 Now: No Reviewed Nursing Documentation: PMH: Agreed; PSxH: Agreed Nursing Documentation-PMH Hx Hypertension: Yes Hx Neurological Problems: Yes - Sciatica, Herniated L4-L5 Review of Systems All Other Systems: negative except mentioned in HPI Physical Exam Vital Signs Date Time Temp Pulse Resp B/P (MAP) Pulse Ox O2 Delivery O2 Flow Rate FiO2 10/26/18 12:37 98.2 87 18 143/73 98 Room Air Sp02 EP Interpretation: reviewed, normal General Appearance: alert, GCS 15, non-toxic, mild distress Head: normocephalic, atraumatic Eyes: bilateral eye normal inspection, bilateral eye PERRL ENT: hearing grossly normal, normal voice Neck: full range of motion Respiratory: chest non-tender, lungs clear, normal breath sounds, speaking full sentences Cardiovascular #1: regular rate, rhythm Gastrointestinal: non tender, soft Rectal: deferred Genitourinary: normal inspection, no CVA tenderness Musculoskeletal: back normal, normal range of motion, tender - Mild tenderness to palpation to the right paraspinal muscles of the lower back without midline tenderness. Neurologic: alert, oriented x3, responsive, motor strength/tone normal, sensory intact, speech normal, grossly normal Psychiatric: judgement/insight normal Skin: normal color, no rash, warm/dry, well hydrated Medical Decision Making PA Attestation Dr. [place] is my supervising Physician whom patient management has been discussed with. Diagnostic Impression: Primary Impression: acute exacerbation of chronic pain ER Course 58-year-old female presents to the emergency department complaining of 7 out of 10 in severity right-sided low back pain with radiation down to the posterior right knee 1 day. Patient reports acute onset after helping to take her mother to the bathroom at 4 AM this morning. Patient reports history of L4-L5 disc herniation and regularly receives epidural injections every 8 months. Patient reports that her last injection was 6 months ago she denies fevers, chills or history of neoplastic disease. Patient denies midline spinal pain, trauma or fall. Patient denies incontinence, saddle anesthesia or urinary retention. Patient reports ambulating or sitting straight up and down exacerbates her pain. She reports having difficulty finding position of comfort. Denies dysuria, hematuria, or urinary frequency. Denies abdominal pain or tenderness. Ddx considered: epidural abscess, fracture, sprain/strain, meningitis, spinal chord injury, sciatica, cauda equina, Pyelonephritis, renal calculi just to name a few. Vital signs reviewed and are WNL during ED visit. Pt. is afebrile with no signs of infection No new symptoms, and denies recent trauma. No saddle anesthesia noted, Pt. denies incontinence Neurovascular is intact ROM is limited due to pain * Mild tenderness to palpation to the right paraspinal muscles of the lower back without midline tenderness. ORDERS: none warranted at this time. INTERVENTIONS: -Tramadol PO D/W Pt. that for further pain management is it recommended to consult PCP or a Chronic Pain management doctor. A provider who can safely prescribe controlled substances with close follow up. DISCHARGE: At this time pt. is stable for d/c to home. Will provide printed patient care instructions, and any necessary prescriptions. Care plan and follow up instructions have been discussed with the patient prior to discharge. Last Vital Signs Date Time Temp Pulse Resp B/P (MAP) Pulse Ox O2 Delivery O2 Flow Rate FiO2 10/26/18 12:37 98.2 87 18 143/73 98 Room Air Disposition: HOME, SELF-CARE Condition: Stable Patient Instructions: Back Pain, Adult Additional Instructions: Take medications as directed. Follow up with a Primary Care Provider in 3-5 days, even if your symptoms have resolved. --Please review list of primary care clinics, if you do not already have a primary care provider Return sooner to ED if new symptoms occur, or current symptoms become worse. Do not drink alcohol, drive, or operate heavy machinery while taking Tramadol as this may cause drowsiness. - Please note that this Emergency Department Report was dictated using [email or web address] technology software, occasionally this can lead to erroneous entry secondary to interpretation by the dictation equipment. Talya Hogan Oct 26, 2018 12:53
[2018-10-26] MEDS ORDERED: traMADol 50mg tab ORAL ONE (13:00)
[2018-10-26] MEDS ORDERED: ROBAXIN-750750 MG PO (13:22)
[2018-10-26] MEDS ORDERED: LIDODERM700 M1 TOPIC (13:22)
[2018-10-26 13:25] VITALS: BP 143/73
[2018-10-26 13:28] VITALS: BP 143/73
== END 2018-10-26 13:30 | disposition home or self-care (01) ==
LOC: EMR 13:15
DX: M51.16 Intervertebral disc disorders with radiculopathy, lumbar region (principal); G89.29 Other chronic pain; I10 Essential (primary) hypertension; Z88.5 Allergy status to narcotic agent
CPT/HCPCS: 99283